=== PATIENT | male | born 1960 | race Caucasian/White ===

== ENCOUNTER 2016-05-19 19:29 | Inpatient (IN) | payer MEDICARE, OTHER ==
--- NOTE | ~2016-05-19 | CN ---
Consultation Report [address] [place]. [address] NAME: ALISSA WILEY : 62 STATUS : ADM IN PAT#: [id number] AGE: 56 ADM/REG DATE : 05/19/16 MR#: [id number] REPORT SERV DATE: 05/20/16 DICTATED BY: JEANNINE RAMIREZ DATE: 05/20/16 REPORT STATUS : Draft TRANSCRIBED BY: MODL DATE: 05/20/16 DATE OF CONSULTATION: 05/20/2016 I am asked to see this gentleman with GI bleeding. HISTORY OF PRESENT ILLNESS: This 56-year-old, [facility] resident, had recent episodes of nausea and vomiting. There was described to be coffee-grounds emesis present. Apparently there were no recent complaints of epigastric pain. The symptoms seemed to be rather sudden in onset. PAST MEDICAL HISTORY: Remarkable for mental retardation, bipolar disease, and history of seizure disorder. In addition, he has a history of chronic renal failure being followed by his primary care physicians. Emergency room evaluation showed a blood pressure systolic greater than 100 with a heart rate less than 100. PAST MEDICAL HISTORY: Also includes sleep apnea, thyroid disease, seizure disorder, and anxiety. Listed medications include Demadex. PHYSICAL EXAMINATION: HEENT: Head, eyes, ears, nose, throat grossly normal. NECK: Supple. CHEST: Clear. CARDIAC: Regular rhythm. ABDOMEN: Soft and nontender. Bowel sounds normal. No palpable mass. DATA: Initial hemoglobin was 11 with a white count of 8500. Pro time and platelets were normal. IMPRESSION: Coffee-grounds emesis. PLAN: Proceed with panendoscopy in the next 24 hours. Thank you for allowing me to see this gentleman. SOLEDAD/YANIQUE Jeannine Ramirez M.D. / [id number] Consultation Report [address] [address] NAME: ALISSA WILEY : 62 STATUS : ADM IN PAT#: [id number] AGE: 56 ADM/REG DATE : 05/19/16 MR#: [id number] REPORT SERV DATE: 05/20/16 DICTATED BY: JEANNINE RAMIREZ DATE: 05/20/16 REPORT STATUS : Draft TRANSCRIBED BY: MODLuis E DATE: 05/20/16 CC: Jeremy Guido Jr, MD Randy Heisser, M.D.
--- NOTE | ~2016-05-19 | DS ---
Discharge Summary [facility] [address] [place]. [address] NAME: ALISSA WILEY : 62 STATUS : DIS IN PAT#: [id number] AGE: 56 ADM/REG DATE : 05/19/16 MR#: [id number] REPORT SERV DATE: 05/27/16 DICTATED BY: RASHAAD ALVAREZ DATE: 05/26/16 REPORT STATUS : Draft TRANSCRIBED BY: MODL DATE: 05/26/16 ADMISSION DATE: 05/19/2016 DISCHARGE DATE: 05/26/2016 DISCHARGE DIAGNOSES: 1. Hemorrhagic grade B esophagitis. 2. Fecal impaction. 3. Bilateral leg and abdominal swelling, improved after transfusion. 4. Acute kidney injury on chronic kidney disease, stage III with a baseline creatinine about 2 to 2.5, currently below 2.0. 5. Mental retardation with autism. 6. Obstructive sleep apnea. 7. B12 deficiency. 8. Hypothyroidism. OPERATIONS AND PROCEDURES: Please refer to interim summary dictated by Dr. Guido on 05/23/2016. CONSULTANTS DURING THIS HOSPITALIZATION: None. INVASIVE PROCEDURES DONE DURING THIS HOSPITALIZATION: None. BRIEF HISTORY OF PRESENT ILLNESS: The patient is a 56-year-old male, mentally retarded with autism, long-term resident of [place], brought to the emergency room with coffee-ground emesis, so he was admitted. For detailed history and physical exam, please see note dictated by Dr. River Varela on 05/19/2016. HOSPITAL COURSE: After being admitted to the hospital, this patient was cared for by Dr. Jeremy Guido. Please refer to interim summary dictated by Dr. Guido on 05/23/2016. I took over this patient's care on 05/24/2016. This patient was doing fairly well. I had noticed that his H and H had trended down to about 7.7. We gave him 1 unit of PRBCs that significantly improved his peripheral edema and his abdominal distention as well. His creatinine improved to about 2.0. He is tolerating a diet. He feels well and back to baseline. Caregivers have attended to him during this hospitalization and he remained stable from a medical standpoint to return back to [place]. DISCHARGE DISPOSITION: To [place]. DISCHARGE ACTIVITY: As tolerated. DISCHARGE DIET: GI soft diet. DISCHARGE MEDICATIONS: Protonix 40 mg p.o. one tablet twice daily, vitamin B12 1000 mcg injectable IM every 30 days, vitamin D 2000 units once every evening, Colace 100 mg three times daily, Tricor 145 mg once every evening, Flonase two sprays each nostril once at bedtime, folic acid 1 mg every morning, gabapentin 300 mg at bedtime, Levsin 0.125 mg twice Discharge Summary [facility] [address] [place]. [address] NAME: ALISSA WILEY : 62 STATUS : DIS IN PAT#: [id number] AGE: 56 ADM/REG DATE : 05/19/16 MR#: [id number] REPORT SERV DATE: 05/27/16 DICTATED BY: RASHAAD ALVAREZ DATE: 05/26/16 REPORT STATUS : Draft TRANSCRIBED BY: YANIQUE DATE: 05/26/16 daily, levothyroxine 50 mcg once at breakfast, Zyrtec 10 mg once at bedtime, Ativan 0.5 mg twice daily, magnesium oxide 400 mg every morning, Singulair 10 mg once every morning, Zyprexa 15 mg once at bedtime, Prilosec 20 mg with breakfast, MiraLAX 17 g one packet twice daily for constipation, transdermal patch as directed, [place] Nasal [place], Flomax 0.4 mg once every morning, trazodone 150 mg once at bedtime, Pulmicort Respules 0.5 mg neb twice daily, Aldactone 25 mg once every evening, DuoNebs one neb three times daily, Lasix 20 mg once every evening, potassium 10 mEq once every morning, Maalox p.r.n., Gaviscon p.r.n., Damon's Baby Oil, Mucus Relief one tablet p.o. every 12 hours, and calcium citrate 200 mg p.o. every morning for constipation, DISCHARGE FOLLOWUP: With physicians at [facility]. More than 30 minutes spent planning this patient's discharge, reconciling medications, writing prescriptions, discussing hospital care with the caregiver at the bedside and documenting this discharge. VALARIE/YANIQUE Rashaad Alvarez M.D. / [id number] CC: Rashaad Alvarez M.D. Lucho Keller M.D. [facility] [place]
--- NOTE | ~2016-05-19 | IDS ---
Interim Discharge Summary [facility] [address] [place]. [address] NAME: ALISSA WILEY : 62 STATUS : ADM IN PAT#: [id number] AGE: 56 ADM/REG DATE : 05/19/16 MR#: [id number] REPORT SERV DATE: 05/23/16 DICTATED BY: JR. GUIDO WILLIAM JOHN DATE: 05/23/16 REPORT STATUS : Draft TRANSCRIBED BY: MODLuis E DATE: 05/23/16 ADMISSION DATE: 05/19/2016 DISCHARGE DATE: DATE OF SUMMARY: 05/23/2016. This interim summary covers the time period from 05/19/2016 through 05/23/2016. WORKING DIAGNOSES: 1. Hemorrhagic grade B esophagitis. 2. Fecal impaction. 3. Bilateral leg and abdominal swelling. 4. Acute kidney injury, on chronic kidney disease, stage 3. Baseline creatinine 2 to 2.5. 5. Mental retardation with autism. 6. Obstructive sleep apnea, on CPAP. 7. B12 deficiency. 8. Hypothyroidism. OPERATIONS, PROCEDURES, AND TREATMENTS: 1. CT of abdomen and pelvis, done 05/21/2016, which showed fecal impaction with obstruction of small bowel. There is trace nonspecific ascites. There is bibasilar atelectatic change with small amounts of free fluid. The liver was unremarkable. 2. Venous Doppler ultrasound, bilateral lower extremities, was negative for clot. 3. Abdominal x-ray, done 05/22/2016, was unremarkable. 4. Echocardiogram, done 05/22/2016, showed normal left ventricular size and function with ejection fraction of 55% to 60% with normal right ventricular size and function. INTERIM MEDICATIONS: Please see the medication list. HOSPITAL COURSE: Briefly, the patient is a 56-year-old mentally retarded patient with autism, long-term resident of [place], brought to the emergency room at [facility] on 05/19/2016 for coffee-grounds emesis. The patient was unable to provide any history; however, report was that he had vomited large volume of coffee-grounds material. The patient had seen a fundraising coordinator since 2016 for pneumonia and developed hematemesis at that time. Initial exam showed a temperature of 97.4, blood pressure 133/72, heart rate 104, respiratory rate is 16. Hemoglobin was 11. INR was normal. Platelets were normal. BUN at admission were 33 and 2.8. The patient was admitted to the hospital. He was seen in consultation by Dr. Willis of Gastroenterology and underwent an upper endoscopy which showed LA grade B reflux esophagitis with an otherwise normal exam. Recommendation was for b.i.d. proton pump inhibitor for at least 3 months. The patient's hemoglobin level fell to 7.7. He was not transfused and his hemoglobin level remained stable thereafter. On the third day of hospitalization, the night warehouse selector for the [facility] was present, and she related that one of the major issues with the patient was increasing Interim Discharge Summary [facility] [address] [place]. [address] NAME: ALISSA WILEY : 62 STATUS : ADM IN PAT#: [id number] AGE: 56 ADM/REG DATE : 05/19/16 MR#: [id number] REPORT SERV DATE: 05/23/16 DICTATED BY: JR. GUIDO WILLIAM JOHN DATE: 05/23/16 REPORT STATUS : Draft TRANSCRIBED BY: YANIQUE DATE: 05/23/16 abdominal girth and increasing lower extremity edema. CT of his abdomen and pelvis was performed as well as a comprehensive metabolic profile, neither showed any evidence of liver dysfunction. In addition, the patient underwent an ultrasound of the heart without dysfunction. He had a venous Doppler ultrasound of the bilateral lower extremities which showed no evidence of clot. Thyroid-stimulating hormone was checked. The patient is on appropriate replacement. His albumin was also reasonable. CT of the abdomen and pelvis did not show large lymphadenopathy or lymphangitic blockage. I feel this is likely primary renal, which is unfortunate because when the patient gets diuretic, his kidney function dramatically declines. At this point, the edema is causing the patient no distress, therefore we would choose watchful waiting at this point. Regarding fecal impaction. The patient was given laxatives with good results. Follow up x- rays are pending. We will check another followup x-ray tomorrow morning and observe the patient. The plan is for the patient to go back to [place] on Thursday. My partner, Dr. Alvarez, will assume care of this patient in the morning. WDorysF/YANIQUE Jeremy Guido Jr, MD / [id number] CC: Jeremy Guido Jr, MD Randy Heisser, M.D.
--- NOTE | ~2016-05-19 | HP ---
History And Physical [facility] [address] [place]. [address] NAME: ALISSA WILEY : 62 STATUS : ADM IN PAT#: [id number] AGE: 56 ADM/REG DATE : 05/19/16 MR#: [id number] REPORT SERV DATE: 05/20/16 DICTATED BY: NICOL RODNEY DATE: 05/19/16 REPORT STATUS : Draft TRANSCRIBED BY: MODL DATE: 05/19/16 DATE OF ADMISSION: 05/19/2016 POINT OF ENTRY: [facility] Emergency Department. CHIEF COMPLAINT: Coffee-grounds emesis. HISTORY OF PRESENT ILLNESS: Mr. Wiley is a 56-year-old gentleman with a history of mental retardation, who is a long-term resident of [facility], who is brought to the emergency department today by his caregivers for reports of multiple episodes of large volume coffee-grounds emesis. History is obtained from the patient's caregivers who are at bedside as the patient is unable to provide any history secondary to his underlying mental retardation as well as autism and bipolar disease. They state that he was in his usual state of health until about 2:30 this afternoon when he started to develop multiple episodes of large volume coffee- grounds emesis. The staff at bedside estimates that he has vomited approximately a gallon's worth of coffee-grounds emesis since this all started at 2:30 this afternoon. Of note, the patient has seen our gastrologist in 2016 for when he was admitted for pneumonia and developed emesis at that time, which revealed he has gastritis as well as a large hiatal hernia. There was consideration at that time of PEG tube placement given concern for moderate to severe oropharyngeal dysphagia; however, decision ultimately was made to make the patient a DNR and allow the patient to eat for comfort which still is in place. Initial evaluation in the emergency department notable for a blood pressure initially of 133/72. On recheck, it is now 108/73. He is placed on a Protonix drip. His hemoglobin is 11.0, hematocrit is 35.0, INR is 1.0. His BUN and creatinine were mildly elevated at 33/2.85. The patient was subsequently admitted to the Hospitalist Service for further evaluation and management. REVIEW OF SYSTEMS: Comprehensive review of systems otherwise negative unless listed in history of present illness. PREVIOUS MEDICAL HISTORY: 1. Mental retardation. 2. Autism. 3. Bipolar disease. 4. Anxiety. 5. Seizure disorder. 6. Chronic kidney disease, stage 3. 7. Obstructive sleep apnea, on CPAP therapy. 8. Hypothyroidism. 9. History of gastritis. History And Physical [address] [place]. [address] NAME: ALISSA WILEY : 62 STATUS : ADM IN PAT#: [id number] AGE: 56 ADM/REG DATE : 05/19/16 MR#: [id number] REPORT SERV DATE: 05/20/16 DICTATED BY: NICOL RODNEY DATE: 05/19/16 REPORT STATUS : Draft TRANSCRIBED BY: YANIQUE DATE: 05/19/16 10.Moderate to severe oropharyngeal dysphagia. SURGICAL HISTORY: 1. Appendectomy. 2. Inguinal hernia repair. 3. Small bowel obstruction with ex-lap and lysis of adhesions with small bowel resection. ALLERGIES: TO ASPIRIN, NSAIDS, HALDOL, LANOLIN, ELAVIL, AND BUTYROPHENONES. HOME MEDICATIONS: Pending at the time of dictation. SOCIAL HISTORY: Denies any tobacco, alcohol, or illicits. He is a long-term resident of [facility]. Caregivers are at bedside providing history. FAMILY MEDICAL HISTORY: Per review of [facility] reveals a history of breast cancer, colon cancer as well as diabetes. LABS AND IMAGIN. White count is 8.5, hemoglobin is 11.0, hematocrit is 35.0, platelet count is 323, and INR is 1.0. 2. Sodium is 140, potassium 4.5, chloride 101, carbon dioxide 34, BUN 33, creatinine 2.85, glucose is 104, calcium is 8.8, protein is 7.5, albumin is 3.4, bilirubin is 0.3, ALT is 29, AST 34, and alkaline phosphatase is 71. 3. Occult stool is positive. PHYSICAL EXAMINATION: VITAL SIGNS: Temperature is 97.4 degrees Fahrenheit, pulse is 104, respirations 16, saturating 97% on room air, and blood pressure 133/72. On recheck, blood pressure 108/73. GENERAL: The patient is awake and alert, in no distress. Resting comfortably in bed. He is a well-developed, well-nourished, male. Caregivers are at bedside. HEENT: Atraumatic and normocephalic. Moist mucous membranes. Pupils are equal, round, reactive to light and accommodation. The patient does have some evidence of dry coffee- grounds emesis in his nares. CARDIAC: Regular rate and rhythm. No murmurs, rubs, or gallops. Normal S1, S2. LUNGS: Clear to auscultation bilaterally. No wheezes, rhonchi, or crackles. ABDOMEN: Soft, nontender, and nondistended. Good bowel sounds. No rebound, guarding, or rigidity. EXTREMITIES: Warm and perfused. No cyanosis, clubbing, or edema. SKIN: Warm and dry. PSYCH: Affect appropriate. NEURO: Alert and oriented x3. Cranial nerves 2 through 12 grossly intact. Speech is normal. Gait not assessed. ASSESSMENT AND PLAN: Mr. Wiley is a 56-year-old gentleman with a history of mental retardation, as well as autism and bipolar disease, who is a long-term resident of [facility], who presents with multiple episodes of large volume coffee-grounds emesis. History And Physical [address] [address] NAME: ALISSA WILEY : 62 STATUS : ADM IN [facility]#: [id number] AGE: 56 ADM/REG DATE : 05/19/16 MR#: [id number] REPORT SERV DATE: 05/20/16 DICTATED BY: NICOL RODNEY DATE: 05/19/16 REPORT STATUS : Draft TRANSCRIBED BY: YANIQUE DATE: 05/19/16 PROBLEM LIST: 1. Hematemesis. 2. Acute kidney injury on chronic kidney disease, stage 3. 3. Mental retardation with autism. 4. Obstructive sleep apnea, on CPAP therapy. 5. History of gastritis. PLAN: 1. Hematemesis. The patient has received a bolus of Protonix here in the ER. Continue Protonix drip. We will continue to check hemoglobin and hematocrit q.6 hours and transfuse if hemoglobin less than 7. Holding any in all potential medications that may cause bleeding such as aspirin, NSAIDs, and blood thinners. 2. Acute kidney injury on chronic kidney disease, stage 3. Holding the patient's nephrotoxic medications. Aggressive IV fluid hydration. 3. Obstructive sleep apnea, on CPAP therapy. We will allow the patient to use his home CPAP therapy. 4. DVT prophylaxis. TEDs and SCDs. CODE STATUS: The patient wishes to be DNR, this was confirmed by reviewing POST form. JONATHAN/YANIQUE Nicol Rodney MD / [id number] CC: Scooter Trejo M.D.
--- NOTE | ~2016-05-19 | EGD ---
EGD REPORT [facility] [address] [address] NAME: ALISSA WILEY : 62 STATUS : ADM IN PAT#: [id number] AGE: 56 ADM/REG DATE : 05/19/16 MR#: [id number] REPORT SERV DATE: 05/21/16 DICTATED BY: JEANNINE RAMIREZ DATE: 05/21/16 REPORT STATUS : Draft TRANSCRIBED BY: [facility] DATE: 05/21/16 Endoscopy Center Patient Name: Alissa Wiley Date of : 1960 Attending MD: JEANNINE RAMIREZ MD Procedure Date No Time: 05/21/2016 Procedure: Upper GI endoscopy Indications: Coffee-ground emesis Medicines: Propofol per Anesthesia Complications: No immediate complications. Procedure: Pre-Anesthesia Assessment: - ASA Grade Assessment: IV - A patient with severe systemic disease that is a constant threat to life. After obtaining informed consent, the endoscope was passed under direct vision. Throughout the procedure, the patient's blood pressure, pulse, and oxygen saturations were monitored continuously. The GIF [id number] was introduced through the mouth, and advanced to the third part of duodenum. The upper GI endoscopy was accomplished without difficulty. The patient tolerated the procedure well. Findings: LA Grade B (one or more mucosal breaks greater than 5 mm, not extending between the tops of two mucosal folds) esophagitis with no bleeding was found in the lower third of the esophagus. The exam was otherwise without abnormality. Impression: - LA Grade B reflux esophagitis. - The examination was otherwise normal. Procedure Code(s): --- Professional --- 31205, Esophagogastroduodenoscopy, flexible, transoral; diagnostic, including collection of specimen(s) by brushing or washing, when performed (separate procedure) Diagnosis Code(s): --- Professional --- K21.0, Gastro-esophageal reflux disease with esophagitis K92.0, Hematemesis CPT copyright 2013 [employer]. All rights reserved. The codes documented in this report are preliminary and upon latex fashions designer review may be revised to meet current compliance requirements. EGD REPORT [facility] [address] [address] NAME: ALISSA WILEY : 62 STATUS : ADM IN [facility]#: [id number] AGE: 56 ADM/REG DATE : 05/19/16 MR#: [id number] REPORT SERV DATE: 05/21/16 DICTATED BY: JEANNINE RAMIREZ DATE: 05/21/16 REPORT STATUS : Draft TRANSCRIBED BY: [employer] DATE: 05/21/16 JEANNINE RAMIREZ MD 05/21/2016 8:10 AM This report has been signed electronically. Number of Addenda: 0 Note Initiated On: 05/21/2016 6:54 AM Scope Withdrawal Time 0 hours 0 minutes 0 seconds [address] [address]
[2016-05-19 16:30] LABS: BASOPHILS 0 %; EOSINOPHILS 0.8 %; EOSINOPHILS ABSOLUTE 0.07 10/3/uL (0.0-0.53); IMMATURE GRANULOCYTES 0.2 %; IMMATURE GRANULOCYTES ABSOLUTE 0.02 10/3/uL (0.0-0.11); LYMPHOCYTES 5.7 %; LYMPHOCYTES ABSOLUTE 0.48 10/3/uL (0.67-4.30); MEAN CORPUS HGB CONC 31.4 g/dL (32.0-36.0); MEAN CORPUSCULAR HEMOGLOB 28.4 pg (26.0-34.0); MEAN CORPUSCULAR VOLUME 90.4 fL (80-100); MEAN PLATELET VOLUME 10.7 fL (9.2-13.0); MONOCYTES 2.4 %; NEUTROPHILS 90.9 %; NEUTROPHILS ABSOLUTE 7.71 10/3/uL (2.02-8.40); PLATELET COUNT 323 10/3/uL (150-400); RBC DISTRIBUTION WIDTH 14.7 % (12.0-16.0); RED CELL COUNT 3.87 10/6/uL (4.7-6.1); WHITE BLOOD CELLS 8.5 10/3/uL (4.5-10.5)
[2016-05-19 16:31] LABS: MANUAL DIFF NO %
[2016-05-19 16:35] LABS: PARTIAL THROMBO TIME 26.5 SEC (22.5-37.2); PROTIME (NOT ORD) 13.1 SEC (12.0-14.5)
[2016-05-19 16:45] LABS: A/G RATIO 0.8 (0.7-1.9); ALBUMIN 3.4 G/DL (3.5-5.0); ALKALINE PHOSPHATASE 71 U/L (45-117); CALCIUM, SERUM 8.8 MG/DL (8.5-10.4); CHLORIDE, SERUM 101 MMOL/L (96-112); GFR AFRICAN AMERICAN 28 ML/MIN (>=60); GFR NON AFRICAN AMERICAN 24 ML/MIN (>=60); GLOBULIN 4.1 G/DL (2.5-4.1); GLUCOSE, SERUM 104 MG/DL (60-99); SGOT(AST) 34 U/L (5-40); SGPT(ALT) 29 U/L (5-65); SODIUM, SERUM 140 MMOL/L (135-148); TOTAL BILIRUBIN 0.3 MG/DL (0-1.2); TOTAL PROTEIN 7.5 G/DL (6.0-8.5)
[2016-05-19 16:46] LABS: BUN (BLOOD UREA NITROGEN) 33 MG/DL (6-23); CO2 (CARBON DIOXIDE) 34 MMOL/L (24-34); CREATININE 2.85 MG/DL (0.70-1.30); POTASSIUM, SERUM 4.5 MMOL/L (3.5-5.3)
[~2016-05-19 19:29] MED LIST: AMB10 PO; AUG875 PO; B121000P IM; B121000P SC; CALCIUM CITRATE PO; CITRACAL PO; CORDARONE PO; D.O.S.100 MG PO; DEEP SEA0.65 % NAS; DOCUSATE PO; DSS PO; DUONEB INH; ESKALITH PO; FLOMAX4 PO; FLONASE NAS; FLORASTOR250 MG PO; FOLIC PO; GAVISCON6 PO; HALF81 PO; IRON325 MG PO; JOHNSON'S BABY OIL OT; LITHOBID3 PO; MAALOX PO; MAGOX4 PO; MELA3 PO; MINERAL OIL OT; MIRALAXPKT PO; MOVIPREP PO; NEUR100 PO; NIACIN 500 PO; NIACOR500 MG PO; NIASPAN500 PO; OCEAN NAS; PEP20 PO; PRILO PO; PRILOSEC40 MG PO; PROZ10 PO; PROZAC PO; SALINE MIST; SYN.05 PO; TAMIFLU PO; TRANSSCOP TOP; TRICOR145 PO; VITAMIN D2000 UNIT PO; VITAMIN D31000 UNIT PO; ZYPREXA10 MG PO; ZYPREXA15 MG PO; ZYRTEC ALLGY10 MG PO
[2016-05-19] MEDS ORDERED: ATV.5 PO (20:30)
[2016-05-19] MEDS ORDERED: SPIRO25 PO (20:31)
[2016-05-19] MEDS ORDERED: LEVSINTAB PO (20:32)
[2016-05-19] MEDS ORDERED: TRAZODONE150 MG PO (20:32)
[2016-05-19] MEDS ORDERED: SILACE60 MG/15 M PO (20:33)
[2016-05-19] MEDS ORDERED: SINGULAIR1 PO (20:34)
[2016-05-19] MEDS ORDERED: DUONEB INH (20:34)
[2016-05-19] MEDS ORDERED: L20 PO (20:34)
[2016-05-19] MEDS ORDERED: NEUR300 PO (20:35)
[2016-05-19] MEDS ORDERED: KDUR10 PO (20:35)
[2016-05-19] MEDS ORDERED: ZYPREXA15 MG PO (20:35)
[2016-05-19] MEDS ORDERED: MAALOX PO (20:35)
[2016-05-19] MEDS ORDERED: TRICOR145 PO (20:36)
[2016-05-19] MEDS ORDERED: GAVISCON PO (20:36)
[2016-05-19] MEDS ORDERED: FLONASE NAS (20:37)
[2016-05-19] MEDS ORDERED: MAGOX4 PO (20:37)
[2016-05-19] MEDS ORDERED: FOLIC PO (20:37)
[2016-05-19] MEDS ORDERED: MIRALAX POWDER1 PKT PO (20:37)
[2016-05-19] MEDS ORDERED: TRANSSCOP TOP (20:38)
[2016-05-19] MEDS ORDERED: SYN.05 PO (20:38)
[2016-05-19] MEDS ORDERED: PRILO PO (20:39)
[2016-05-19] MEDS ORDERED: ZYRTEC ALLGY10 MG PO (20:39)
[2016-05-19] MEDS ORDERED: PULRESP.5 INH (20:41)
[2016-05-19] MEDS ORDERED: JOHNSON'S BABY OIL OT (20:41)
[2016-05-19] MEDS ORDERED: MUCUSRELIEF PO (20:42)
[2016-05-19] MEDS ORDERED: B121000P IM (20:43)
[2016-05-19] MEDS ORDERED: CALCIUM CITRATE PO (20:43)
[2016-05-19] MEDS ORDERED: OCEAN NAS (20:43)
[2016-05-19] MEDS ORDERED: FLOMAX4 PO (20:47)
[2016-05-19] MEDS ORDERED: VITAMIN D31000 UNIT PO (20:48)
[2016-05-20 10:14] LABS: CHLORIDE, SERUM 106 MMOL/L (96-112); CREATININE 3.16 MG/DL (0.70-1.30); GFR AFRICAN AMERICAN 24 ML/MIN (>=60); GFR NON AFRICAN AMERICAN 21 ML/MIN (>=60); GLUCOSE, SERUM 94 MG/DL (60-99); POTASSIUM, SERUM 4.4 MMOL/L (3.5-5.3); SODIUM, SERUM 142 MMOL/L (135-148)
[2016-05-20 10:16] LABS: BUN (BLOOD UREA NITROGEN) 48 MG/DL (6-23); CALCIUM, SERUM 7.8 MG/DL (8.5-10.4); CO2 (CARBON DIOXIDE) 29 MMOL/L (24-34)
[2016-05-20 11:13] LABS: BASOPHILS 0 %; EOSINOPHILS 0.3 %; EOSINOPHILS ABSOLUTE 0.01 10/3/uL (0.0-0.53); HEMATOCRIT 25.1 % (40.0-51.0); HEMOGLOBIN 8.1 g/dL (13.6-17.8); IMMATURE GRANULOCYTES 0.3 %; IMMATURE GRANULOCYTES ABSOLUTE 0.01 10/3/uL (0.0-0.11); LYMPHOCYTES 20.3 %; LYMPHOCYTES ABSOLUTE 0.75 10/3/uL (0.67-4.30); MANUAL DIFF NO %; MEAN CORPUS HGB CONC 32.3 g/dL (32.0-36.0); MEAN CORPUSCULAR HEMOGLOB 29.3 pg (26.0-34.0); MEAN CORPUSCULAR VOLUME 90.9 fL (80-100); MEAN PLATELET VOLUME 11.3 fL (9.2-13.0); MONOCYTES 7.6 %; MONOCYTES ABSOLUTE 0.28 10/3/uL (0.21-1.20); NEUTROPHILS 71.5 %; NEUTROPHILS ABSOLUTE 2.64 10/3/uL (2.02-8.40); PLATELET COUNT 232 10/3/uL (150-400); RED CELL COUNT 2.76 10/6/uL (4.7-6.1); WHITE BLOOD CELLS 3.7 10/3/uL (4.5-10.5)
[2016-05-20 13:19] LABS: HEMATOCRIT 23.7 % (40.0-51.0); HEMOGLOBIN 7.7 g/dL (13.6-17.8)
[2016-05-20 18:04] LABS: HEMATOCRIT 25.3 % (40.0-51.0); HEMOGLOBIN 8.2 g/dL (13.6-17.8)
[2016-05-20 22:36] LABS: HEMATOCRIT 24.5 % (40.0-51.0)
[2016-05-21 06:39] LABS: CALCIUM, SERUM 8.4 MG/DL (8.5-10.4); CHLORIDE, SERUM 109 MMOL/L (96-112); CO2 (CARBON DIOXIDE) 26 MMOL/L (24-34); CREATININE 2.81 MG/DL (0.70-1.30); GFR AFRICAN AMERICAN 28 ML/MIN (>=60); GFR NON AFRICAN AMERICAN 24 ML/MIN (>=60); GLUCOSE, SERUM 91 MG/DL (60-99); POTASSIUM, SERUM 4.1 MMOL/L (3.5-5.3); SODIUM, SERUM 143 MMOL/L (135-148)
[2016-05-21 06:40] LABS: BUN (BLOOD UREA NITROGEN) 43 MG/DL (6-23)
[2016-05-21 06:49] LABS: BASOPHILS 0.3 %; BASOPHILS ABSOLUTE 0.01 10/3/uL (0.0-0.16); EOSINOPHILS 2.7 %; HEMATOCRIT 25.1 % (40.0-51.0); HEMOGLOBIN 8.3 g/dL (13.6-17.8); IMMATURE GRANULOCYTES 0.5 %; IMMATURE GRANULOCYTES ABSOLUTE 0.02 10/3/uL (0.0-0.11); LYMPHOCYTES 24.4 %; LYMPHOCYTES ABSOLUTE 0.92 10/3/uL (0.67-4.30); MEAN CORPUS HGB CONC 33.1 g/dL (32.0-36.0); MEAN CORPUSCULAR HEMOGLOB 29.5 pg (26.0-34.0); MEAN CORPUSCULAR VOLUME 89.3 fL (80-100); MEAN PLATELET VOLUME 11.4 fL (9.2-13.0); MONOCYTES 8.8 %; MONOCYTES ABSOLUTE 0.33 10/3/uL (0.21-1.20); NEUTROPHILS 63.3 %; NEUTROPHILS ABSOLUTE 2.39 10/3/uL (2.02-8.40); PLATELET COUNT 258 10/3/uL (150-400); RBC DISTRIBUTION WIDTH 15.4 % (12.0-16.0); RED CELL COUNT 2.81 10/6/uL (4.7-6.1); WHITE BLOOD CELLS 3.8 10/3/uL (4.5-10.5)
[2016-05-21 06:51] LABS: MANUAL DIFF NO %
[2016-05-21 11:13] LABS: HEMATOCRIT 26.9 % (40.0-51.0); HEMOGLOBIN 8.7 g/dL (13.6-17.8)
[2016-05-21 16:14] LABS: HEMOGLOBIN 8.5 g/dL (13.6-17.8)
[2016-05-21 23:14] LABS: HEMATOCRIT 26.8 % (40.0-51.0); HEMOGLOBIN 8.7 g/dL (13.6-17.8)
[2016-05-22 05:25] LABS: BASOPHILS 0.3 %; BASOPHILS ABSOLUTE 0.01 10/3/uL (0.0-0.16); EOSINOPHILS 1.9 %; EOSINOPHILS ABSOLUTE 0.07 10/3/uL (0.0-0.53); HEMATOCRIT 24.2 % (40.0-51.0); HEMOGLOBIN 7.8 g/dL (13.6-17.8); IMMATURE GRANULOCYTES 0.3 %; IMMATURE GRANULOCYTES ABSOLUTE 0.01 10/3/uL (0.0-0.11); LYMPHOCYTES 24.7 %; LYMPHOCYTES ABSOLUTE 0.91 10/3/uL (0.67-4.30); MEAN CORPUS HGB CONC 32.2 g/dL (32.0-36.0); MEAN CORPUSCULAR HEMOGLOB 29.1 pg (26.0-34.0); MEAN CORPUSCULAR VOLUME 90.3 fL (80-100); MEAN PLATELET VOLUME 10.9 fL (9.2-13.0); MONOCYTES 8.4 %; MONOCYTES ABSOLUTE 0.31 10/3/uL (0.21-1.20); NEUTROPHILS 64.4 %; NEUTROPHILS ABSOLUTE 2.38 10/3/uL (2.02-8.40); PLATELET COUNT 211 10/3/uL (150-400); RBC DISTRIBUTION WIDTH 15.1 % (12.0-16.0); RED CELL COUNT 2.68 10/6/uL (4.7-6.1); WHITE BLOOD CELLS 3.7 10/3/uL (4.5-10.5)
[2016-05-22 05:26] LABS: MANUAL DIFF NO %
[2016-05-22 05:31] LABS: CALCIUM, SERUM 8.5 MG/DL (8.5-10.4); CHLORIDE, SERUM 112 MMOL/L (96-112); CO2 (CARBON DIOXIDE) 24 MMOL/L (24-34); CREATININE 2.37 MG/DL (0.70-1.30); GFR AFRICAN AMERICAN 34 ML/MIN (>=60); GFR NON AFRICAN AMERICAN 30 ML/MIN (>=60); GLUCOSE, SERUM 91 MG/DL (60-99); POTASSIUM, SERUM 4.3 MMOL/L (3.5-5.3); SODIUM, SERUM 144 MMOL/L (135-148)
[2016-05-22 05:32] LABS: BUN (BLOOD UREA NITROGEN) 35 MG/DL (6-23)
[2016-05-22 09:46] LABS: HEMATOCRIT 24.2 % (40.0-51.0); HEMOGLOBIN 7.9 g/dL (13.6-17.8)
[2016-05-22 16:26] LABS: HEMATOCRIT 24.4 % (40.0-51.0)
[2016-05-22 22:20] LABS: HEMATOCRIT 22.6 % (40.0-51.0); HEMOGLOBIN 7.5 g/dL (13.6-17.8)
[2016-05-23 04:22] LABS: HEMATOCRIT 21.6 % (40.0-51.0); HEMOGLOBIN 7.2 g/dL (13.6-17.8)
[2016-05-23 04:48] LABS: CALCIUM, SERUM 8.5 MG/DL (8.5-10.4); CHLORIDE, SERUM 110 MMOL/L (96-112); CO2 (CARBON DIOXIDE) 25 MMOL/L (24-34); CREATININE 2.33 MG/DL (0.70-1.30); GFR AFRICAN AMERICAN 35 ML/MIN (>=60); GFR NON AFRICAN AMERICAN 30 ML/MIN (>=60); SODIUM, SERUM 143 MMOL/L (135-148)
[2016-05-23 04:49] LABS: BUN (BLOOD UREA NITROGEN) 28 MG/DL (6-23); GLUCOSE, SERUM 111 MG/DL (60-99)
[2016-05-23 10:02] LABS: HEMATOCRIT 22.9 % (40.0-51.0); HEMOGLOBIN 7.4 g/dL (13.6-17.8)
[2016-05-23 16:14] LABS: HEMATOCRIT 29.3 % (40.0-51.0); HEMOGLOBIN 9.2 g/dL (13.6-17.8)
[2016-05-23 23:09] LABS: HEMOGLOBIN 7.7 g/dL (13.6-17.8)
[2016-05-23 23:14] LABS: HEMATOCRIT 23.2 % (40.0-51.0)
[2016-05-24 06:10] LABS: CALCIUM, SERUM 8.1 MG/DL (8.5-10.4); CHLORIDE, SERUM 110 MMOL/L (96-112); CO2 (CARBON DIOXIDE) 23 MMOL/L (24-34); CREATININE 1.95 MG/DL (0.70-1.30); GFR AFRICAN AMERICAN 44 ML/MIN (>=60); GFR NON AFRICAN AMERICAN 38 ML/MIN (>=60); GLUCOSE, SERUM 102 MG/DL (60-99); POTASSIUM, SERUM 4.2 MMOL/L (3.5-5.3); SODIUM, SERUM 143 MMOL/L (135-148)
[2016-05-24 06:14] LABS: BUN (BLOOD UREA NITROGEN) 21 MG/DL (6-23)
[2016-05-25 06:14] LABS: BASOPHILS 0.2 %; BASOPHILS ABSOLUTE 0.01 10/3/uL (0.0-0.16); EOSINOPHILS 8.4 %; EOSINOPHILS ABSOLUTE 0.35 10/3/uL (0.0-0.53); HEMATOCRIT 24.3 % (40.0-51.0); HEMOGLOBIN 8.2 g/dL (13.6-17.8); IMMATURE GRANULOCYTES 0.2 %; IMMATURE GRANULOCYTES ABSOLUTE 0.01 10/3/uL (0.0-0.11); LYMPHOCYTES 27.2 %; LYMPHOCYTES ABSOLUTE 1.14 10/3/uL (0.67-4.30); MEAN CORPUS HGB CONC 33.7 g/dL (32.0-36.0); MEAN CORPUSCULAR HEMOGLOB 29.3 pg (26.0-34.0); MEAN PLATELET VOLUME 10.1 fL (9.2-13.0); MONOCYTES 8.8 %; MONOCYTES ABSOLUTE 0.37 10/3/uL (0.21-1.20); NEUTROPHILS 55.2 %; NEUTROPHILS ABSOLUTE 2.31 10/3/uL (2.02-8.40); PLATELET COUNT 189 10/3/uL (150-400); RBC DISTRIBUTION WIDTH 15.6 % (12.0-16.0); WHITE BLOOD CELLS 4.2 10/3/uL (4.5-10.5)
[2016-05-25 06:21] LABS: MANUAL DIFF NO %; MEAN CORPUSCULAR VOLUME 86.8 fL (80-100)
[2016-05-25 06:23] LABS: ALBUMIN 3.1 G/DL (3.5-5.0); BUN (BLOOD UREA NITROGEN) 18 MG/DL (6-23); CALCIUM, SERUM 8.7 MG/DL (8.5-10.4); CHLORIDE, SERUM 106 MMOL/L (96-112); CO2 (CARBON DIOXIDE) 25 MMOL/L (24-34); CREATININE 2.01 MG/DL (0.70-1.30); GFR AFRICAN AMERICAN 42 ML/MIN (>=60); GFR NON AFRICAN AMERICAN 36 ML/MIN (>=60); GLUCOSE, SERUM 88 MG/DL (60-99); PHOSPHORUS, SERUM 3.8 MG/DL (2.5-4.5); POTASSIUM, SERUM 3.9 MMOL/L (3.5-5.3); SODIUM, SERUM 142 MMOL/L (135-148)
[2016-05-26 04:59] LABS: ALBUMIN 2.9 G/DL (3.5-5.0); BUN (BLOOD UREA NITROGEN) 19 MG/DL (6-23); CALCIUM, SERUM 8.5 MG/DL (8.5-10.4); CHLORIDE, SERUM 108 MMOL/L (96-112); CO2 (CARBON DIOXIDE) 27 MMOL/L (24-34); GFR AFRICAN AMERICAN 42 ML/MIN (>=60); GFR NON AFRICAN AMERICAN 36 ML/MIN (>=60); GLUCOSE, SERUM 94 MG/DL (60-99); PHOSPHORUS, SERUM 3.6 MG/DL (2.5-4.5); POTASSIUM, SERUM 3.8 MMOL/L (3.5-5.3); SODIUM, SERUM 143 MMOL/L (135-148)
[2016-05-26] MEDS ORDERED: PROTONIX PO (09:44)
[2016-06-17] MEDS ORDERED: DOCUSATE LIQUID PO (14:31)
[2016-06-17] MEDS ORDERED: LASIX PO (14:32)
== END 2016-05-26 14:14 | disposition home or self-care (01) | DRG 392 ==
LOC: ER 19:29 → 4SO 21:20
PROVIDERS: Emergency Medicine; Internal Medicine; Internal Medicine Gastroenterology
PROC: 0DJ08ZZ Inspection of Upper Intestinal Tract, Via Natural or Artificial Opening Endoscopic (ICD-10-PCS; principal; 2016-05-21 07:30)
PROC: 30233N1 Transfusion of Nonautologous Red Blood Cells into Peripheral Vein, Percutaneous Approach (ICD-10-PCS; 2016-05-24)
DX: K20.8 Other esophagitis (principal); K56.69 Other intestinal obstruction; Z99.81 Dependence on supplemental oxygen; N17.9 Acute kidney failure, unspecified; K92.0 Hematemesis; R13.12 Dysphagia, oropharyngeal phase; N18.3 Chronic kidney disease, stage 3 (moderate); D62 Acute posthemorrhagic anemia; F84.9 Pervasive developmental disorder, unspecified; G40.909 Epilepsy, unspecified, not intractable, without status epilepticus; K22.8 Other specified diseases of esophagus; K56.41 Fecal impaction; F79 Unspecified intellectual disabilities; F31.9 Bipolar disorder, unspecified; F41.9 Anxiety disorder, unspecified; G47.33 Obstructive sleep apnea (adult) (pediatric); K44.9 Diaphragmatic hernia without obstruction or gangrene; E03.9 Hypothyroidism, unspecified; E53.8 Deficiency of other specified B group vitamins; Z66 Do not resuscitate; Z98.890 Other specified postprocedural states; Z88.6 Allergy status to analgesic agent; Z88.8 Allergy status to other drugs, medicaments and biological substances
CPT/HCPCS: 36415; 74020; 74176; 74177; 80048; 80053; 80069; 84443; 85014; 85018; 85025; 85610; 85730; 86850; 86900; 86901; 86920; 93306; 93970; 94640; 96374; 99285; A9270-GY; C9113; J2405; J3486; P9016; P9047

== ENCOUNTER 2016-06-20 08:33 | Day surgery (SDC) | payer MEDICARE, OTHER ==
--- NOTE | ~2016-06-20 | OP ---
Record Of Operation [facility] [address] [place]. [address] NAME: ALISSA WILEY : 62 STATUS : REG [facility]#: [id number] AGE: 56 ADM/REG DATE : 06/20/16 MR#: [id number] REPORT SERV DATE: 06/20/16 DICTATED BY: JEREMY SAXENA JR. DATE: 06/20/16 REPORT STATUS : Draft TRANSCRIBED BY: MODL DATE: 06/20/16 DATE OF PROCEDURE: 06/20/2016 SURGEON: Jeremy Saxena M.D. PREOPERATIVE DIAGNOSIS: Urinary frequency, urgency, and hematuria. POSTOPERATIVE DIAGNOSIS: Urinary frequency, urgency, and hematuria. PROCEDURE PERFORMED: Cystoscopy, bilateral retrograde pyelograms. COMPLICATIONS: None. CONSULTATIONS: None. ANESTHESIA: General with laryngeal mask airway. SPECIMENS: None. DRAINS: None. ESTIMATED BLOOD LOSS: None. INDICATION: Mr. Wiley is a 56-year-old gentleman, who is a resident at [facility]. He has been having increasing urgency and frequency and complaining of having to void continuously. He has failed conservative management with alpha blockade and has had some intermittent microscopic hematuria as well. He comes today for cystoscopy and retrograde pyelograms as he is unable to cooperate with the office cystoscopy. PROCEDURE IN DETAIL: After the patient was identified, and proper informed consent was obtained, he was taken to the operating room. General anesthesia was performed without complication using a laryngeal mask airway. He was then prepped and draped in the normal sterile fashion in the lithotomy position. Cystoscopic examination of the penile and bulbous urethra was normal. The prostatic urethra showed nonobstructive appearing prostate 2.5 cm in length, with virtually no median lobe growth, and only minimal lateral lobe growth. His bladder mucosa was examined and found to be normal. There were no trabeculations or diverticula. No stones. No tumors. Bilateral retrograde pyelograms were also performed which revealed normal course, and caliber to the ureters bilaterally, as well as the collecting system in each kidney drained quickly without filling defect or evidence of obstruction. At that point, the bladder was drained. The patient was awakened in the operating room and transferred to the postanesthesia care unit in stable condition. I did not feel that he has a degree of bladder outlet obstruction at this point, and I do not feel that any surgical intervention for that would be necessary. I did prescribe oxybutynin 5 mg p.o. b.i.d. to see if this would improve his urgency symptoms, and I will see him back in the office in approximately four weeks in followup. Record Of Operation [facility] [address] [facility] [place]. [address] NAME: ALISSA WILEY : 62 STATUS : REG [facility] PAT#: [id number] AGE: 56 ADM/REG DATE : 06/20/16 MR#: [id number] REPORT SERV DATE: 06/20/16 DICTATED BY: JEREMY SAXENA JR. DATE: 06/20/16 REPORT STATUS : Draft TRANSCRIBED BY: YANIQUE DATE: 06/20/16 RUBIO/YANIQUE Jeremy Saxena Jr., M.D. / [id number] CC: Scooter Cintron Jr., M.D.
[~2016-06-20 08:33] MED LIST changes: +ATV.5 PO; +DOCUSATE LIQUID PO; +GAVISCON PO; +KDUR10 PO; +L20 PO; +LASIX PO; +LEVSINTAB PO; +MIRALAX POWDER1 PKT PO; +MUCUSRELIEF PO; +NEUR300 PO; +PROTONIX PO; +PULRESP.5 INH; +SILACE60 MG/15 M PO; +SINGULAIR1 PO; +SPIRO25 PO; +TRAZODONE150 MG PO
== END 2016-06-20 16:30 | disposition home or self-care (01) ==
LOC: SDC 08:33
PROVIDERS: Urology
PROC: BT14YZZ Fluoroscopy of Kidneys, Ureters and Bladder using Other Contrast (ICD-10-PCS; principal; 2016-06-20 09:45)
DX: R35.0 Frequency of micturition (principal); R31.9 Hematuria, unspecified; G47.33 Obstructive sleep apnea (adult) (pediatric); E03.9 Hypothyroidism, unspecified; F31.9 Bipolar disorder, unspecified; F41.9 Anxiety disorder, unspecified; Z99.89 Dependence on other enabling machines and devices; Z98.890 Other specified postprocedural states; Z88.8 Allergy status to other drugs, medicaments and biological substances; Z79.899 Other long term (current) drug therapy
CPT/HCPCS: 74420; J1956; J2250; J2370; J2405; J3010; Q9967